=== PATIENT | female | born 1990 | race Two or more races ===

== ENCOUNTER 2017-08-01 16:58 | Inpatient (IN) | payer OTHER ==
[~2017-08-01] VITALS: Ht 182.9 cm; Wt 91.6 kg
--- NOTE | 2017-08-01 17:00 | NUR ---
PT PAOLA TO ER BED 12. POSSIBLE OD TO TYLENOL. PT C/O DEPRESSION. ADMITS SHE TOOK THE MEDICATION TO HURT HERSELF. PT IS AAOX4. DENIES CHEST PAIN, DENIES SOB. PLACED ON MONITOR. STABLE VITALS [employer] NOTED. AWAITING MD KIMBROUGH.
[2017-08-01] MEDS ORDERED: FLUO10CA26 PO (17:01)
--- NOTE | 2017-08-01 17:19 | NUR ---
DR MASCORRO AT BEDSIDE FOR EVAL.
[2017-08-01] MEDS ORDERED: FAMO20TA80 PO (17:30)
[2017-08-01] MEDS ORDERED: ACETYLCYSTEINE IV 6,000 MG/30 ML VIAL IV ONE (17:30)
[2017-08-01] MEDS ORDERED: ACETYLCYSTEINE IV ONE ×3 (17:30→23:30)
[2017-08-01] MEDS ORDERED: D5W IV ONE ×3 (17:30→23:30)
[2017-08-01] MEDS ORDERED: ESCI10TA PO (17:31)
--- NOTE | 2017-08-01 17:34 | NUR ---
PD AT BEDSIDE TALKING TO PT.
[2017-08-01 17:35] LABS: BASOPHILS # (AUTO) 0.1 /CMM (0.0-0.2); EOSINOPHILS # (AUTO) 0.1 /CMM (0.0-0.7); EOSINOPHILS % (AUTO) 1.1 % (0.0-6.0); HEMATOCRIT 43 % (33-45); HEMOGLOBIN 14.2 g/dL (11.5-14.8); LYMPHOCYTES # (AUTO) 2.5 /CMM (0.8-4.8); LYMPHOCYTES % (AUTO) 20.8 % (20.0-44.0); MEAN CORPUSCULAR HEMOGLOBIN 29 PG (26.0-33.0); MEAN CORPUSCULAR HGB CONC 33 g/dl (31.0-36.0); MEAN CORPUSCULAR VOLUME 89 fL (82-100); MONOCYTES # (AUTO) 0.2 /CMM (0.1-1.30); NEUTROPHILS # (AUTO) 9.2 /CMM (1.8-8.9); NEUTROPHILS % (AUTO) 75.1 % (43.0-81.0); PLATELET COUNT (AUTO) 263 /CMM (150-450); RDW COEFFICIENT OF VARIATION 11.6 (11.5-15.0); RED BLOOD CELL COUNT(AUTO) 4.82 MIL/uL (4.0-5.2); WHITE BLOOD COUNT (AUTO) 12.1 K/uL (4.3-11.0)
[2017-08-01 17:37] LABS: APPEARANCE,URINE Clear (CLEAR); BILIRUBIN,URINE Negative (NEGATIVE); BLOOD, URINE Small Ery/uL (NEGATIVE); COLOR,URINE Yellow (YELLOW); KETONES,URINE Negative (NEGATIVE); LEUKOCYTE ESTERASE ,URINE Moderate (NEGATIVE); NITRITE, URINE Negative (NEGATIVE); PH,URINE 6.5 (5.0-8.0); PROTEIN,URINE Negative (NEGATIVE); UGLUCOSE Negative (NEGATIVE); UROBILINOGEN,URINE 0.2 EU/dL (0.2)
[2017-08-01 17:44] LABS: CALCIUM, SERUM 9.1 mg/dL (8.5-10.1); CARBON DIOXIDE 26 mmol/L (21-32); CHLORIDE 103 mmol/L (98-107); CREATININE 0.8 mg/dL (0.6-1.3); GLUCOSE 100 mg/dL (74-106); POTASSIUM 3.6 mmol/L (3.5-5.1); SODIUM SERUM 138 mmol/L (136-145); UREA NITROGEN, BLOOD 15 mg/dL (7-18)
[2017-08-01 17:50] LABS: ACETAMINOPHEN 66 ug/ml (10-30); ALANINE AMINOTRANSFERASE 29 U/L (12-78); ALBUMIN 4.1 g/dL (3.4-5.0); ALCOHOL, BLOOD < 3 mg/dL (0-0); ALKALINE PHOSPHATASE 60 U/L (46-116); ASPARTATE AMINOTRANSFERASE 21 U/L (15-37); BILIRUBIN,DIRECT 0.1 mg/dL (0.0-0.2); BILIRUBIN,TOTAL 0.4 mg/dL (0.2-1.0); TOTAL PROTEIN, SERUM 8.4 g/dL (6.4-8.2)
[2017-08-01 17:54] LABS: SALICYLATE 0.7 mg/dL (2.8-20.0)
--- NOTE | 2017-08-01 17:58 | NUR ---
psych drone software development engineer notified. en route.
[2017-08-01 18:02] LABS: BACTERIA,URINE Moderate /HPF (None Seen); SQUAMOUS EPITHELIAL CELL,UR Many /HPF (None Seen)
[2017-08-01 18:09] LABS: INR 1.03 (0.87-1.13); PROTHROMBIN TIME 10.7 SECS (9.5-12.7)
--- NOTE | 2017-08-01 18:10 | NUR ---
KRISTIN RN AT BEDSIDE FOR PSYCH EVAL.
[2017-08-01] MEDS ORDERED: diphenhydrAMINE HCL 50 MG/ML VIAL ONE (18:55)
--- NOTE | 2017-08-01 18:55 | NUR ---
PT STARTED C/O SOB, WARMTH AND ITCHING, IV ACETADOTE D/C'D. DR HOLMAN MADE AWARE W/ ORDERS WILL CARRY OUT.
[2017-08-01] MEDS ORDERED: diphenhydrAMINE HCL 50 MG/ML VIAL IV ONE (19:00)
[2017-08-01] MEDS ORDERED: ONDANSETRON HCL/PF 4 MG/2 ML VIAL ONE (19:05)
--- NOTE | 2017-08-01 19:13 | NUR ---
BOOKKEEPING MACHINE MECHANIC PAGED (BLAZE/PANEL)
[2017-08-01] MEDS ORDERED: MAG HYDROX/AL HYDROX/SIMETH 30 ML UDC PO PRN (19:30)
[2017-08-01] MEDS ORDERED: ONDANSETRON HCL/PF - ER 4 MG/2 ML VIAL IV ONE (19:30)
[2017-08-01] MEDS ORDERED: MAGNESIUM HYDROXIDE 30 ML UDC PO PRN (19:30)
[2017-08-01] MEDS ORDERED: Z GUARD REMEDY 2 OZ OINT TP PRN (19:30)
[2017-08-01] MEDS ORDERED: ONDANSETRON HCL/PF 4 MG/2 ML VIAL IVP PRN (19:30)
--- NOTE | 2017-08-01 19:30 | NUR ---
BED RECIEVED, ICU 261
--- NOTE | 2017-08-01 19:40 | NUR ---
REPORT GIVEN TO [facility]. PT AWAITING TRANSFER TO FLOOR.
--- NOTE | 2017-08-01 20:54 | NUR ---
REPORT GIVEN TO LUIS. PT AWAITING TRANSFER TO FLOOR.
[2017-08-01 21:00] VITALS: BP 121/70
[2017-08-01] MEDS: IV NS 0.9% 1,000 ML IV PRN (21:48)
--- NOTE | 2017-08-01 22:00 | NUR ---
ADMISSION NOTE; A 26 YRS OLD FEMALE ADMITTED TO UNIT WITH THE DX OF TYLENOL OVERDOSE , PT IS FULLY A/O, COOPERATIVE , ABLE TO GIVE HX , PT VERBALIZED THAT SHE TOOK ONE BOTTLE OF TYLENOL (ABOUT 20 PILL ) TO HARM HERSELF. SHE DENIES ANY SUICIDAL IDEATION AT THIS TIME .WITH HX OF BIPOLAR DISORDER, DEPRESSION , ANXIETY . BREATHING EVEN AND UNLABORED ON ROOM AIR, SKIN INTACT , TELE MONITOR SHOWING SR WITH HR 80 . PERIPHERAL IV 20 G IN LAC AND LH INTACT AND PATENT . MUCOMYST DRIP D/Cd FROM ER . CONTINENT TO BOWEL/BLADDER , CALL LIGHT WITHIN REACH . WILL CONTINUE TO MONITOR .
[2017-08-02] VITALS: BP 116/72
[2017-08-02 04:00] VITALS: BP 108/70
--- NOTE | 2017-08-02 06:40 | NUR ---
RN EOS NOTE; PT REMAINED STABLE DURING THE SHIFT, NO ANY DISTRESS NOTED, ALL NEEDS ATTENDED PROMPTLY. IVF TOLERATED WELL. WILL ENDORSE TO NEXT SHIFT RN FOR CONTINUITY OF CARE.
[2017-08-02 06:58] LABS: BASOPHILS % (AUTO) 0.7 % (0.0-2.0); EOSINOPHILS # (AUTO) 0.1 /CMM (0.0-0.7); EOSINOPHILS % (AUTO) 1.8 % (0.0-6.0); HEMATOCRIT 38 % (33-45); HEMOGLOBIN 13.1 g/dL (11.5-14.8); LYMPHOCYTES # (AUTO) 2.8 /CMM (0.8-4.8); LYMPHOCYTES % (AUTO) 41.6 % (20.0-44.0); MEAN CORPUSCULAR HEMOGLOBIN 31 PG (26.0-33.0); MEAN CORPUSCULAR HGB CONC 34 g/dl (31.0-36.0); MEAN CORPUSCULAR VOLUME 89 fL (82-100); MONOCYTES # (AUTO) 0.4 /CMM (0.1-1.30); MONOCYTES % (AUTO) 5.9 % (2.0-12.0); NEUTROPHILS # (AUTO) 3.3 /CMM (1.8-8.9); PLATELET COUNT (AUTO) 223 /CMM (150-450); RDW COEFFICIENT OF VARIATION 12.4 (11.5-15.0); RED BLOOD CELL COUNT(AUTO) 4.28 MIL/uL (4.0-5.2); WHITE BLOOD COUNT (AUTO) 6.7 K/uL (4.3-11.0)
[2017-08-02] MEDS ORDERED: PANTOPRAZOLE 40 MG TABLET.DR PO SCH (07:30)
[2017-08-02 07:41] LABS: CALCIUM, SERUM 8.2 mg/dL (8.5-10.1); CREATININE 0.7 mg/dL (0.6-1.3); MAGNESIUM 1.9 mg/dL (1.8-2.4); PHOSPHORUS 3.5 mg/dL (2.5-4.9); POTASSIUM 3.6 mmol/L (3.5-5.1)
[2017-08-02 08:00] VITALS: BP_SYST 116; BP_SYST 127; BP_DIAS 65; BP_DIAS 70
[2017-08-02] MEDS ORDERED: FAMOTIDINE (20 MG) 20 MG TABLET PO SCH (09:00)
[2017-08-02] MEDS ORDERED: ESCITALOPRAM OXALATE (10 MG) 10 MG TABLET PO SCH (09:00)
--- NOTE | 2017-08-02 09:00 | NUR ---
A/A/O TIMES 4 NO DISTRESS NOTED OR VOICED, GETS UP TO VOID
[2017-08-02] MEDS: IV NS 0.9% 1,000 ML IV PRN (09:41)
--- NOTE | 2017-08-02 11:13 | NUR ---
PATIENT ASSESSED FOR LETHALITY ASSESSMENT,PT. VERBALIZED " i was just tired",did not elaborate further ,calm ,quiet,deneid any suicidal ideation.awaits psyche consult,per pt. she will have visitor coming later of the day.
--- NOTE | 2017-08-02 11:16 | NUR ---
will continue to monitor ,
--- NOTE | 2017-08-02 13:27 | NUR ---
SEEN AND EVALUATED BY DR. CASANOVA NO NEED FOR SITTER PER MD.
[2017-08-02] MEDS ORDERED: SERT25TA5 PO (13:53)
--- NOTE | 2017-08-02 15:10 | NUR ---
IV DCD, NO S/S OF TRYING TO HARM HERSELF, fAMILY AT WITH PATIENT. hELPED OUT TO CAR. DC INSTUCTIONS GIEVEN AND UNDERSTOOD
--- NOTE | 2017-08-02 15:16 | NUR ---
ff. up with glenda regarding dr. green referral per cm she will refer it to [facility] social worker and will ff. up on friday.pt. discharge home ,no suicidal ideation,referredto [facility] for ff. up referral per glenda.
[2017-08-03] MEDS ORDERED: SERTRALINE HCL 25 MG TABLET PO SCH (09:00)
== END 2017-08-02 15:56 | disposition home or self-care (01) | DRG 812 ==
LOC: ER 17:00 → ICU 19:54 → TELE1 20:50 → MEDSG1 08-02 11:52
PROVIDERS: ADMIT Internal Medicine; ATTEND Internal Medicine
DX: T39.1X2A Poisoning by 4-Aminophenol derivatives, intentional self-harm, initial encounter (principal); F33.2 Major depressive disorder, recurrent severe without psychotic features; F41.0 Panic disorder [episodic paroxysmal anxiety]; F17.210 Nicotine dependence, cigarettes, uncomplicated; Y92.009 Unspecified place in unspecified non-institutional (private) residence as the place of occurrence of the external cause; K21.9 Gastro-esophageal reflux disease without esophagitis; Z79.899 Other long term (current) drug therapy
CPT/HCPCS: 36415; 80048-TC; 80076-TC; 80305; 81000-TC; 83735-TC; 84100-TC; 85025-TC; 85610-TC; 87081-TC; 87086-TC; A4606; G0480; J0132; J1200; J2405; J7030; J7060; J7070; Z7610